=== PATIENT | female | born 1985 | race Caucasian/White ===

== ENCOUNTER 2018-12-27 13:46 | Emergency (ER) | payer OTHER ==
[~2018-12-27] VITALS: Ht 170.2 cm; Wt 81.7 kg
[~2018-12-27 13:46] MED LIST: ALLEGRA ALLERGY60 MG PO; AMBEREN; BENADRYL25 MG PO; BIAFINE45 GM TP; CIPRO250 M2 PO; ELOCON15 GM TP; FISH OIL500 MG PO; FLEXERIL PO; FOLBIC RF TABL1 EACH PO; IRON325 PO; LO LOESTRIN FE1 EACH; MOBIC7.5 MG PO; NICOTINE TRANSD21 M1; PREDNISONE 20 M20 M1 PO; PYRIDIUM200 MG PO; VITAMINC500 PO; WELLBUTRIN SR100 MG PO; WELLBUTRIN SR150 MG; ZYRTEC10 M2
[2018-12-27] MEDS ORDERED: METRONIDAZOLE500 M4 PER TUBE (14:00)
[2018-12-27 14:29] LABS: ABSOLUTE BASOPHILS 0.1 thou/uL (0.0-0.2); ABSOLUTE EOSINOPHILS 0.4 thou/uL (0.0-0.7); ABSOLUTE LYMPHOCYTES 1.8 thou/uL (0.8-5.3); ABSOLUTE MONOCYTES 0.4 thou/uL (0.0-1.2); ABSOLUTE NEUTROPHILS 6.4 thou/uL (1.6-8.1); BASOPHILS 0.6 %; HEMATOCRIT 41.7 % (37.0-47.0); HEMOGLOBIN 14.7 gm/dL (12.0-15.0); LYMPHOCYTES 19.8 %; MCH 31.8 pg (26.0-34.0); MCHC 35.3 g/dL (28.0-37.0); MCV 90.2 fL (80.0-100.0); MONOCYTES 4.2 %; NUCLEATED RBCS 0 /100WBC; PLATELET COUNT* 281 thou/uL (150-400); POLYS 71.4 %; RBC 4.63 mil/uL (4.20-5.00); RDW-CV 13.1 % (10.5-14.5)
[2018-12-27 14:42] LABS: ALBUMIN 3.2 g/dL (3.4-5.0); CREATININE 0.9 mg/dL (0.6-1.3); POTASSIUM 4.1 mmol/L (3.5-5.1); TOTAL BILIRUBIN 0.3 mg/dL (<0.1-1.0); TOTAL PROTEIN 6.3 g/dL (6.4-8.2)
[2018-12-27] MEDS ORDERED: IBUPROFEN 800800 M1 PO (15:24)
[2018-12-27] MEDS ORDERED: ACETAMINOPHEN-1 EAC1 PO (15:24)
[2018-12-27 15:52] VITALS: BP 137/97
== END 2018-12-27 15:52 | disposition home or self-care (01) ==
LOC: M.ERS 13:46
PROVIDERS: Physician Assistant
DX: M79.661 Pain in right lower leg (principal); F41.9 Anxiety disorder, unspecified; Z88.2 Allergy status to sulfonamides

== ENCOUNTER 2020-08-16 02:53 | Emergency (ER) | payer OTHER ==
[~2020-08-16] VITALS: Ht 167.6 cm; Wt 81.7 kg
[~2020-08-16 02:53] MED LIST changes: +ACETAMINOPHEN-1 EAC1 PO; +IBUPROFEN 800800 M1 PO; +METRONIDAZOLE500 M4 PER TUBE
[2020-08-16] MEDS ORDERED: WELLBUTRIN 75 M75 M1 PO (03:15)
[2020-08-16] MEDS ORDERED: PAXIL20 MG PO (03:16)
[2020-08-16 03:46] LABS: URINE BILIRUBIN NEGATIVE (Negative); URINE BLOOD NEGATIVE (Negative); URINE CLARITY CLEAR; URINE COLOR STRAW; URINE GLUCOSE-RANDOM NEGATIVE (Negative); URINE KETONES NEGATIVE (Negative); URINE LEUKOCYTES NEGATIVE (Negative); URINE NITRITE NEGATIVE (Negative); URINE PROTEIN NEGATIVE (Negative); URINE UROBILINOGEN 0.2 E.U./dl (0.2-1.0)
[2020-08-16 03:54] LABS: AMP/METHAMP Negative (Negative); BARBITURATES Negative (Negative); BENZODIAZEPINES Negative (Negative); COCAINE Negative (Negative); METHADONE Negative (Negative); OPIATES Negative (Negative); PCP Negative (Negative); THC Negative (Negative)
[2020-08-16 03:58] LABS: HEMATOCRIT 44.8 % (37.0-47.0); HEMOGLOBIN 15.5 gm/dL (12.0-15.0); MCH 30.1 pg (26.0-34.0); MCHC 34.6 g/dL (28.0-37.0); MCV 87.1 fL (80.0-100.0); RBC 5.14 mil/uL (4.20-5.00); RDW-CV 12.6 % (10.5-14.5); WBC 7.3 thou/uL (4.0-11.0)
[2020-08-16 04:07] LABS: CALCIUM 8.5 mg/dL (8.5-10.1); CREATININE 0.7 mg/dL (0.6-1.3); POTASSIUM 3.4 mmol/L (3.5-5.1)
[2020-08-16 04:12] LABS: ALBUMIN 3.9 g/dL (3.4-5.0); TOTAL BILIRUBIN 0.3 mg/dL (<0.1-1.0); TOTAL PROTEIN 7.8 g/dL (6.4-8.2)
[2020-08-16 04:15] LABS: ALCOHOL 194 mg/dL (<10); SALICYLATE 3.2 mg/dL (2.8-20.0)
[2020-08-16 04:23] LABS: ACETAMINOPHEN < 2 ug/mL (10-30)
[2020-08-16 06:23] VITALS: BP 148/96
== END 2020-08-16 06:25 | disposition home or self-care (01) ==
LOC: M.ERS 02:53
PROVIDERS: Personal Emergency Response Attendant
DX: R45.851 Suicidal ideations (principal); F10.129 Alcohol abuse with intoxication, unspecified; Y90.6 Blood alcohol level of 120-199 mg/100 ml; F41.9 Anxiety disorder, unspecified; Z88.2 Allergy status to sulfonamides

== ENCOUNTER 2021-06-14 10:38 | Emergency (ER) | payer BC ==
[~2021-06-14] VITALS: Ht 170.2 cm; Wt 81.7 kg
[~2021-06-14 10:38] MED LIST changes: +PAXIL20 MG PO; +WELLBUTRIN 75 M75 M1 PO
[2021-06-14 12:46] LABS: URINE BILIRUBIN NEGATIVE (Negative); URINE BLOOD NEGATIVE (Negative); URINE CLARITY CLEAR; URINE COLOR ORANGE; URINE GLUCOSE-RANDOM 1+ (Negative); URINE KETONES 1+ (Negative); URINE LEUKOCYTES-REFLEX 1+ (Negative); URINE PROTEIN 3+ (Negative); URINE SPECIFIC GRAVITY 1.025 (1.005-1.030); URINE UROBILINOGEN >= 8.0 E.U./dl (0.2-1.0)
[2021-06-14 13:03] LABS: URINE NITRITE-REFLEX POSITIVE (Negative)
[2021-06-14 13:08] LABS: SQUAMOUS 4-10 Moderate /LPF (0-3)
[2021-06-14 13:12] LABS: URINE RBC 0-2 Rare /HPF (0-2); URINE WBC-REFLEX 0-5 Rare /HPF (0-5)
[2021-06-14 13:13] LABS: BACTERIA-REFLEX 1-9 Few /HPF (None Seen); CASTS None Seen /LPF (None Seen); CRYSTALS None Seen /LPF (None Seen); MUCUS None Seen strn/LPF (None Seen)
[2021-06-14] MEDS ORDERED: PREDNISONE 20 M20 M1 PO (13:16)
[2021-06-14 13:40] VITALS: BP 120/88
== END 2021-06-14 13:41 | disposition home or self-care (01) ==
LOC: M.ERS 10:38
PROVIDERS: Physician Assistant
DX: L50.9 Urticaria, unspecified (principal); R10.9 Unspecified abdominal pain; Z88.2 Allergy status to sulfonamides